=== PATIENT | female | born 1965 | race Two or more races ===

== ENCOUNTER 2017-05-12 09:00 | Inpatient (IN) | payer OTHER ==
[~2017-05-12] VITALS: Ht 160 cm; Wt 66.2 kg
[2017-05-12] MEDS ORDERED: PREVACID30 M1 PO (11:33)
== END 2017-05-20 16:46 | disposition home or self-care (01) | DRG 331 ==
LOC: O/R 05-18 06:25 → SURH 05-18 06:25 → SURG 05-18 09:00 → SURH 05-18 11:41 → SURG 05-18 17:00 → SURH 05-20 16:46
PROVIDERS: Colon & Rectal Surgery
PROC: 0DJD8ZZ Inspection of Lower Intestinal Tract, Via Natural or Artificial Opening Endoscopic (ICD-10-PCS; 2017-05-18)
PROC: 0DTN4ZZ Resection of Sigmoid Colon, Percutaneous Endoscopic Approach (ICD-10-PCS; principal; 2017-05-18 17:00)
DX: K57.32 Diverticulitis of large intestine without perforation or abscess without bleeding (principal); K21.9 Gastro-esophageal reflux disease without esophagitis; F40.240 Claustrophobia; F41.0 Panic disorder [episodic paroxysmal anxiety]

== ENCOUNTER 2020-05-09 07:57 | Day surgery (SDC) | payer OTHER ==
[~2020-05-09 07:57] MED LIST: DICLOFENAC POTA50 MG PO; INTESTINEX680 M1 PO; NEURONTIN300 MG PO; PREVACID30 M1 PO
== END 2020-05-09 15:17 | disposition home or self-care (01) ==
LOC: AMB-ENDOS 07:57
PROVIDERS: ATTEND Colon & Rectal Surgery
DX: K57.32 Diverticulitis of large intestine without perforation or abscess without bleeding (principal); K64.1 Second degree hemorrhoids; Z20.828 Contact with and (suspected) exposure to other viral communicable diseases